=== PATIENT | female | born 1950 | race Caucasian/White ===

== ENCOUNTER 2020-07-26 06:45 | Observation (INO) | payer MEDICARE, BC, SELFPAY ==
[~2020-07-26] VITALS: Ht 154.9 cm; Wt 59.0 kg
[~2020-07-26 06:45] MED LIST: BACLOFEN5 MG PO; BASAGLAR K100 UNIT/1 SQ; FIORICET TAB1 EA PO; IBUPROFEN600 MG PO; KEFLEX CAP 500500 MG PO; MACROBID 100 M100 MG PO; NORCO 10-325 T1 EACH PO; NOVOLOG100 UNIT/1 SQ; ONDANSETRON ODT8 MG SL; PHENERGAN 12.12.5 M1 PO; PHENERGAN 25 MG25 M1 PO; PHENERGAN12.5 MG PR; PHENERGAN25 MG PR; PROTONIX40 MG PO; REGLAN10 MG PO; SYNTHROID88 MCG PO; ZOFRAN 4 MG TAB4 MG PO
[2020-07-26 08:16] LABS: RED BLOOD COUNT 4.44 M/UL (4.00-5.10); WHITE BLOOD COUNT 9.2 K/UL (4.5-11.0)
[2020-07-26 08:41] LABS: BUN/CREATININE RATIO 15 (0-10)
[2020-07-26 19:00] LABS: BUN/CREATININE RATIO 12 (0-10)
[2020-07-27 07:00] LABS: HEMOGLOBIN 11.6 gm/dl (12.3-15.3); WHITE BLOOD COUNT 7.3 K/UL (4.5-11.0)
[2020-07-27 07:01] LABS: RED BLOOD COUNT 3.87 M/UL (4.00-5.10)
[2020-07-27 07:26] LABS: BUN/CREATININE RATIO 16 (0-10)
[2020-10-01] MEDS ORDERED: NOVOLOG (11:41)
[2020-10-01] MEDS ORDERED: HYDROCODON-ACE1 EAC6 PO (11:45)
[2020-10-01] MEDS ORDERED: BASAGLAR SQ (11:46)
[2020-10-01] MEDS ORDERED: PROTONIX40 MG PO (11:47)
[2020-10-01] MEDS ORDERED: IBUPROFEN600 MG PO (11:47)
[2020-10-01] MEDS ORDERED: ZOFRAN ODT 4 MG4 MG PO (11:49)
[2020-10-01] MEDS ORDERED: LEVOTHYROXINE75 MC1 PO (11:50)
[2020-10-01] MEDS ORDERED: PRAVASTATIN SOD40 MG PO (11:51)
[2020-10-06] MEDS ORDERED: NOVOLOG 10100 UNITS/ INJ (06:41)
[2020-10-06] MEDS ORDERED: LINZESS290 MCG PO (06:45)
== END 2020-07-27 14:00 | disposition home or self-care (01) ==
LOC: ER1 06:45 → CDU 10:00 → MED SURG 4 19:23
PROVIDERS: Emergency Medicine; Physician Assistant; ADMIT Internal Medicine
DX: R11.2 Nausea with vomiting, unspecified (principal); E86.0 Dehydration; E11.65 Type 2 diabetes mellitus with hyperglycemia; E89.0 Postprocedural hypothyroidism; F17.210 Nicotine dependence, cigarettes, uncomplicated; K22.70 Barrett's esophagus without dysplasia; Z98.890 Other specified postprocedural states; Z82.49 Family history of ischemic heart disease and other diseases of the circulatory system; Z79.4 Long term (current) use of insulin; Z79.899 Other long term (current) drug therapy
CPT/HCPCS: 36415; 71045; 80048; 80053; 82009; 82550; 82553; 82962; 83874; 84439; 84443; 84484; 85025; 93005; 96372; 96374; 96375; 96376; 99285; A6212; C9113; G0378; J2405; J2550; J7030

== ENCOUNTER 2020-09-16 18:32 | Emergency (ER) | payer MEDICARE, BC, SELFPAY ==
[2020-09-16] MEDS ORDERED: HYDROCODON-ACE1 EAC4 PO (23:34)
[2020-10-01] MEDS ORDERED: NOVOLOG (11:41)
[2020-10-01] MEDS ORDERED: HYDROCODON-ACE1 EAC6 PO (11:45)
[2020-10-01] MEDS ORDERED: BASAGLAR SQ (11:46)
[2020-10-01] MEDS ORDERED: IBUPROFEN600 MG PO (11:47)
[2020-10-01] MEDS ORDERED: PROTONIX40 MG PO (11:47)
[2020-10-01] MEDS ORDERED: ZOFRAN ODT 4 MG4 MG PO (11:49)
[2020-10-01] MEDS ORDERED: LEVOTHYROXINE75 MC1 PO (11:50)
[2020-10-01] MEDS ORDERED: PRAVASTATIN SOD40 MG PO (11:51)
[2020-10-06] MEDS ORDERED: NOVOLOG 10100 UNITS/ INJ (06:41)
[2020-10-06] MEDS ORDERED: LINZESS290 MCG PO (06:45)
== END 2020-09-16 23:41 | disposition home or self-care (01) ==
LOC: ER1 18:32
DX: S22.059A Unspecified fracture of T5-T6 vertebra, initial encounter for closed fracture (principal); R03.0 Elevated blood-pressure reading, without diagnosis of hypertension; Z87.891 Personal history of nicotine dependence; X58.XXXA Exposure to other specified factors, initial encounter
CPT/HCPCS: 71046; 72128; 99284

== ENCOUNTER → 2020-09-23 | Outpatient (CLI) | payer MEDICARE, BC ==
[~2020-09-23] MED LIST changes: +BASAGLAR SQ; +HYDROCODON-ACE1 EAC4 PO; +HYDROCODON-ACE1 EAC6 PO; +LEVOTHYROXINE75 MC1 PO; +LINZESS290 MCG PO; +NOVOLOG; +NOVOLOG 10100 UNITS/ INJ; +PRAVASTATIN SOD40 MG PO; +ZOFRAN ODT 4 MG4 MG PO
== END ==
LOC: KOH-I 15:37
DX: M81.0 Age-related osteoporosis without current pathological fracture (principal); S22.050A Wedge compression fracture of T5-T6 vertebra, initial encounter for closed fracture; M54.6 Pain in thoracic spine; S22.030A Wedge compression fracture of third thoracic vertebra, initial encounter for closed fracture
CPT/HCPCS: 72146

== ENCOUNTER → 2020-10-01 | Outpatient (CLI) | payer MEDICARE, BC, OTHER ==
[2020-10-01 11:48] LABS: HEMOGLOBIN 12.7 gm/dl (12.3-15.3); RED BLOOD COUNT 4.17 M/UL (4.00-5.10); WHITE BLOOD COUNT 7.8 K/UL (4.5-11.0)
[2020-10-01 12:50] LABS: BUN/CREATININE RATIO 14 (0-10)
== END ==
LOC: OPSV2 10:21
PROVIDERS: Nurse Practitioner Family
DX: Z01.812 Encounter for preprocedural laboratory examination (principal); Z01.810 Encounter for preprocedural cardiovascular examination; Z01.818 Encounter for other preprocedural examination; M48.54XA Collapsed vertebra, not elsewhere classified, thoracic region, initial encounter for fracture; E11.40 Type 2 diabetes mellitus with diabetic neuropathy, unspecified
CPT/HCPCS: 36415; 71046; 80053; 80061; 83036; 84439; 84443; 85025; 93005

== ENCOUNTER → 2020-10-03 | Outpatient (CLI) | payer MEDICARE, BC, OTHER | LOC: LAB 10:20 | DX: Z01.812 Encounter for preprocedural laboratory examination (principal); M48.50XA Collapsed vertebra, not elsewhere classified, site unspecified, initial encounter for fracture | CPT/HCPCS: 36415; 84520; 86850; 86900; 86901 ==

== ENCOUNTER → 2020-10-06 | Day surgery (SDC) | payer MEDICARE, BC, SELFPAY ==
[~2020-10-06] VITALS: Ht 154.9 cm; Wt 59.9 kg
== END | disposition home or self-care (01) ==
LOC: OR 05:44
DX: M80.88XA Other osteoporosis with current pathological fracture, vertebra(e), initial encounter for fracture (principal); M19.90 Unspecified osteoarthritis, unspecified site; E11.9 Type 2 diabetes mellitus without complications; E78.5 Hyperlipidemia, unspecified; K21.9 Gastro-esophageal reflux disease without esophagitis; F17.210 Nicotine dependence, cigarettes, uncomplicated; X58.XXXA Exposure to other specified factors, initial encounter
CPT/HCPCS: 82962; C1713; J0690; J1100; J2001; J2405; J2704; J2710; J3010; J7030; J7120; Q9962

== ENCOUNTER → 2021-03-16 | Outpatient (CLI) | payer MEDICARE, BC | LOC: EXRD 09-29 13:00 | DX: Z78.0 Asymptomatic menopausal state (principal); M81.0 Age-related osteoporosis without current pathological fracture | CPT/HCPCS: 77080 ==

== ENCOUNTER → 2021-08-10 | Outpatient (CLI) | payer MEDICARE, BC | LOC: KOH-I 10:23 | DX: M79.672 Pain in left foot (principal); M79.671 Pain in right foot; M77.32 Calcaneal spur, left foot; M77.31 Calcaneal spur, right foot | CPT/HCPCS: 73630 ==

== ENCOUNTER → 2021-09-10 | Outpatient (CLI) | payer MEDICARE, BC | LOC: KOH-I 14:20 | DX: M84.375A Stress fracture, left foot, initial encounter for fracture (principal); R93.6 Abnormal findings on diagnostic imaging of limbs; M72.2 Plantar fascial fibromatosis; S96.812A Strain of other specified muscles and tendons at ankle and foot level, left foot, initial encounter; X58.XXXA Exposure to other specified factors, initial encounter | CPT/HCPCS: 73718 ==